=== PATIENT | male | born 1935 | race Caucasian/White ===

== ENCOUNTER 2016-08-23 06:26 | Observation (INO) | payer OTHER ==
[2016-08-23] MEDS ORDERED: BACITRACIN IRRIGATION/NS 50,000 UNITS/1,000 ML BTL IRR ONE (06:35)
[2016-08-23] MEDS ORDERED: diphenhydrAMINE 25 MG CAP PO ONE (06:35)
[2016-08-23] MEDS ORDERED: NS 1,000 ML IV ONE (06:35)
[2016-08-23] MEDS ORDERED: DIAZEPAM 5 MG TAB PO ONE (06:35)
[2016-08-23] MEDS ORDERED: ceFAZolin 2 GM/DEXTROSE 100 ML IV ONE (06:35)
--- NOTE | 2016-08-23 06:52 | CPEKG ---
Heart Rate: 73 RR Interval: 822 P-R Interval: 184 QRSD Interval: 142 QT Interval: 464 QTC Interval: 512 P [place]: 53 QRS [place]: 20 T Wave [place]: 21 EKG Severity - ABNORMAL ECG - EKG Impression: SINUS RHYTHM EKG Impression: MULTIPLE ATRIAL PREMATURE COMPLEXES EKG Impression: RIGHT BUNDLE BRANCH BLOCK Electronically Signed By: Irvin Perez 23-Aug-2016 09:52:11
[2016-08-23] MEDS ORDERED: LIDOCAINE 1% 300 MG/30 ML SDV ONE (07:22)
[2016-08-23 07:23] LABS: % IMMATURE GRANULYOCYTES 0.8 % (0.0-1.1); ABSOLUTE IMMATURE GRANULOCYTES 0.04 10^3/uL (0.00-0.10); ADD DIFF? NO; ADD MORPH? NO; ADD SCAN? NO; ATYPICAL LYMPHOCYTE FLAG 0 (0-99); FRAGMENT RBC FLAG 0 (0-99); HEMATOCRIT 43.5 % (40.0-51.0); HEMOGLOBIN 15.8 g/dL (13.7-17.5); LEFT SHIFT FLG 0 (0-99); LIPEMIA HEMOLYSIS FLAG 90 (0-99); MEAN CELL HEMOGLOBIN 36.2 pg (27.9-34.1); MEAN CELL HEMOGLOBIN CONCENTR. 36.3 g/dL (32.4-36.7); MEAN CELL VOLUME 99.5 fL (81.5-99.8); PLATELET CLUMPS FLAG 10 (0-99); RED BLOOD CELL COUNT 4.37 10^6/uL (4.40-6.38)
[2016-08-23] MEDS ORDERED: fentaNYL 100 MCG/2 ML INJ ONE (07:23)
[2016-08-23] MEDS ORDERED: MIDAZOLAM 2 MG/2 ML VIAL ONE ×3 (07:23→08:27)
[2016-08-23] MEDS ORDERED: LIDO/EPI 1% **for epidural** 30 ML SDV ONE (07:24)
[2016-08-23] MEDS ORDERED: IOPAMIDOL (ISOVUE-370) 150 ML BTL IV ONE (07:24)
[2016-08-23] MEDS ORDERED: BUPIVACAINE 0.5% 30 ML SDV ONE (07:24)
[2016-08-23 07:29] LABS: ANION GAP 13 mEq/L (8-16); CALCIUM 9.6 mg/dL (8.5-10.4); CARBON DIOXIDE 22 mEq/l (22-31); CHLORIDE 103 mEq/L (97-110); CREATININE 0.9 mg/dL (0.7-1.3); GLOMERULAR FILTRATION RATE > 60; GLUCOSE 100 mg/dL (70-100); PLATELET COUNT 46 10^3/uL (150-400); POTASSIUM 4.5 mEq/L (3.5-5.2); SODIUM 138 mEq/L (134-144)
[2016-08-23 07:33] LABS: INR 1.53 (0.83-1.16); PROTIME(PATIENT) 18.4 SEC (12.0-15.0)
[2016-08-23 08:09] LABS: PLATELET ESTIMATE DECREASED (ADEQ)
[2016-08-23] MEDS ORDERED: ONDANSETRON DISINTEGRATING 4 MG TAB PO PRN (09:33)
[2016-08-23] MEDS ORDERED: ONDANSETRON 4 MG/2 ML VIAL IVP PRN (09:33)
--- NOTE | 2016-08-23 09:50 | CPEKG ---
Heart Rate: 65 RR Interval: 923 P-R Interval: 192 QRSD Interval: 148 QT Interval: 480 QTC Interval: 500 P [place]: 39 QRS [place]: 5 T Wave [place]: 14 EKG Severity - ABNORMAL ECG - EKG Impression: PACEMAKER SPIKES OR ARTIFACTS EKG Impression: SINUS RHYTHM EKG Impression: RIGHT BUNDLE BRANCH BLOCK EKG Impression: ATRIAL PACING APPEARS NEW IN COMPARISON TO PRIOR (23-AUG-16) Electronically Signed By: Irvin Perez 23-Aug-2016 10:00:22
--- NOTE | 2016-08-23 10:00 | EPPROC ---
Electrophysiology Procedure Note: PROCEDURE PERFORMED: 1. Implantation of an A/V Pacemaker 2. Subclavian vein angiography 3. Fluoroscopy INDICATION: Type 2 second-degree heart block during exercise treadmill testing. Paroxysmal complete heart block with symptoms of dizziness. PROCEDURE NOTE: Patient presented to the cardiac catheterization laboratory in a fasting, post absorptive state . Cardiac catheterization laboratory nurse administered sedation. The left infraclavicular area was prepped and draped in the usual sterile fashion. Lidocaine plus bupivacaine was used for local anesthesia. Left subclavian venography was performed by injection of iodinated contrast into the left antecubital vein. This was done to assure patency of the vein and also to assess for any anatomical aberrations. Using a combination of blunt and sharp dissection and electrocautery, the dissection was carried down to the prepectoral fascia. A pocket was made in this anatomical plane. All bleeding was controlled with electrocautery. The pocket was packed with gauze soaked in antibiotic solution. Fluoroscopy was utilized during the entire procedure for venous access and placement of the leads. Using a direct stick technique the left extrathoracic axillary vein was accessed with 2 sticks using the modified Seldinger technique. Placement of the guidewires into the venous system was confirmed by low-pressure blood return and also by visualizing the guidewires advancing into the inferior vena cava. A purse string suture was applied around the guidewires. Two #7 Singaporean sheaths were advanced under fluoroscopic guidance over the guidewire. An active fixation ventricular lead was advanced into the right ventricular apex and screwed in place. An active fixation atrial lead was advanced into the right atrial appendage and screwed in place. The peel away sheaths were removed. Pacing thresholds, sensing parameters and lead impedances were measured. There was no diaphragmatic stimulation at maximum output. The leads were sutured to the prepectoral fascia with 3 nonabsorbable sutures each. The pocket was again inspected for any bleeding. The leads were attached to the pacemaker securely. The pacemaker was inserted into the pocket and secured in place with a nonabsorbable suture. Fluoroscopy was performed in ADKINS and SPANISH planes to verify right-sided placement of the leads. Also fluoroscopy of the pacemaker pocket was performed. The pacemaker pocket was closed in 3 layers with absorbable monocryl sutures and emma. Appropriate dressing was applied. The patient left the cardiac catheterization laboratory in stable condition. Serial Numbers: 1. Device: [facility] [id number] 2. Atrial Lead: SJM [id number] 3. Ventricular Lead: [id number] [id number] Stimulation Thresholds & Impedance Measurements: 1. Atrial Lead P 2.9 mV 0.9 V 0.5 ms 553 ohm 2. Ventricular Lead R 6.2 mV 0.4 V 0.5 ms 833 ohm Nathan Pacing Parameters 1. Pacing mode: DDD 2. Lower rate: 60 ppm 3. Upper tracking rate: 130 ppm 4. Upper sensor rate: 130 ppm Patient Problems: Problems Problem Status Onset Heart block AV third degree Acute Coronary artery disease Acute Chest pain Acute Abnormal adenosine sestamibi study Acute
[2016-08-23] MEDS: ACETAMINOPHEN 325 MG TAB PO PRN ×2 (15:22→20:40)
[2016-08-23] MEDS: DORZOLAMIDE 2% OPTH DROPS OP SCH ×2 (17:05→21:00)
[2016-08-23] MEDS ORDERED: ZOLPIDEM TARTRATE 5 MG TAB PO PRN (17:23)
[2016-08-23] MEDS ORDERED: ATORVASTATIN CALCIUM 10 MG TAB PO SCH (21:00)
[2016-08-23] MEDS ORDERED: NEBIVOLOL HCL 5 MG TAB PO SCH (21:00)
[2016-08-24 04:42] VITALS: RESP 18; O2SAT 97
[2016-08-24 04:43] LABS: % IMMATURE GRANULYOCYTES 0.4 % (0.0-1.1); ABSOLUTE IMMATURE GRANULOCYTES 0.02 10^3/uL (0.00-0.10); ADD DIFF? NO; ADD MORPH? NO; ADD SCAN? NO; ATYPICAL LYMPHOCYTE FLAG 20 (0-99); FRAGMENT RBC FLAG 0 (0-99); HEMOGLOBIN 13.9 g/dL (13.7-17.5); LEFT SHIFT FLG 0 (0-99); LIPEMIA HEMOLYSIS FLAG 90 (0-99); MEAN CELL HEMOGLOBIN 35.9 pg (27.9-34.1); MEAN CELL HEMOGLOBIN CONCENTR. 35.6 g/dL (32.4-36.7); MEAN CELL VOLUME 100.8 fL (81.5-99.8); MEAN PLATELET VOLUME 11.4 fL (8.7-11.7); PLATELET CLUMPS FLAG 10 (0-99); RED BLOOD CELL COUNT 3.87 10^6/uL (4.40-6.38); RED CELL DISTRIBUTION WIDTH 14.1 % (11.5-15.2)
[2016-08-24 04:44] LABS: PLATELET COUNT 35 10^3/uL (150-400)
[2016-08-24 04:52] LABS: ANION GAP 9 mEq/L (8-16); CALCIUM 9.2 mg/dL (8.5-10.4); CARBON DIOXIDE 22 mEq/l (22-31); CHLORIDE 105 mEq/L (97-110); CREATININE 0.8 mg/dL (0.7-1.3); GLOMERULAR FILTRATION RATE > 60; GLUCOSE 101 mg/dL (70-100); POTASSIUM 3.9 mEq/L (3.5-5.2); SODIUM 136 mEq/L (134-144)
[2016-08-24 05:25] LABS: PLATELET ESTIMATE DECREASED (ADEQ)
[2016-08-24] MEDS: ACETAMINOPHEN 325 MG TAB PO PRN (06:27)
[2016-08-24] MEDS ORDERED: BIMATOPROST 0.01% 2.5 ML OPHT.BTL EACHEYE SCH (09:00)
--- NOTE | 2016-08-24 09:01 | CPEKG ---
Heart Rate: 69 RR Interval: 870 P-R Interval: 176 QRSD Interval: 138 QT Interval: 460 QTC Interval: 493 P [place]: 24 QRS [place]: 18 T Wave [place]: 21 EKG Severity - ABNORMAL ECG - EKG Impression: SINUS RHYTHM EKG Impression: MULTIPLE ATRIAL PREMATURE COMPLEXES EKG Impression: RIGHT BUNDLE BRANCH BLOCK EKG Impression: INTERMITTENT ATRIAL PACING Electronically Signed By: Irvin Perez 24-Aug-2016 11:50:05
[2016-08-24 09:18] VITALS: BP 133/85; PULSE 73; TEMP 97.7
[2016-08-24] MEDS: DORZOLAMIDE 2% OPTH DROPS OP SCH (09:38)
--- NOTE | 2016-08-24 21:34 | GDS ---
[f rep st] DISCHARGE SUMMARY DISCHARGE DIAGNOSES: 1. High-degree atrioventricular block with symptoms of dizziness. 2. Status post dual-chamber pacemaker implant. BRIEF HISTORY: This is an 81-year-old man who was referred by Dr. Gabriel to Dr. Byers for pacemaker implant. He had been experiencing dizziness and secondary heart block was noted on a stress test. He then wore a Zio patch which demonstrated intermittent complete heart block with dizziness. HOSPITAL COURSE: Dr. Byers implanted an Ramsay dual-chamber pacemaker (program mode is DDD at 60 beats per minute) on 08/24/2016. Interrogation demonstrated P waves at 3 mV, impedance at 530 ohms, capture threshold 0.25 V at 0.5 milliseconds. RV capture threshold is 0.5 V at 0.5 milliseconds. R-waves are measured at 9 mV and impedance is 750 ohms. On 08/23/2016, the patient went into PMT at a rate of 130 beats per minute. Reny Harrington RN from [facility] adjusted PVARP after testing retrograde conduction, which was noted to be at 227 milliseconds. PVARP is at 400 milliseconds and shortest at 250 milliseconds. The patient did well overnight without bleeding at the site or significant pain. No further PMT was noted on telemetry. TESTING DONE: Chest x-ray demonstrates excellent lead positioning and no pneumothorax. LABS: WBC is 4.53, hemoglobin 13.9, hematocrit 39, platelets are 35. (These have been chronically low and is not a new finding and are followed by hematology ) MCV is 100.8. Sodium 136, potassium 3.9, chloride 105, bicarb 22 , BUN 15, creatinine 0.8, glucose 101. PT 18.4, INR is 1.53. PHYSICAL EXAM: VITAL SIGNS: Blood pressure is 144/87, pulse is 70, respirations 18, temperature is 36.6, O2 saturation on room air is 97%. GENERAL : He is alert and oriented. Sitting up in a chair in no acute distress. CARDIAC: Regular rate and rhythm with a 2/6 systolic murmur at the left sternal border. LUNGS: Clear to auscultation. CHEST: Pacemaker site is dry and intact with Opsite over gauze and no dried blood on dressing. There is a mild amount of pocket swelling. No significant ecchymosis. EXTREMITIES: Warm. No discoloration. DISCHARGE INSTRUCTIONS: Post pacemaker implant activity restrictions were verbally reviewed with patient and he was given written instructions as well, including not bring his left arm above the shoulder or behind himself. FOLLOWUP: 1. He has a pacemaker check scheduled August 30 at 9 o'clock at [facility]. 2. He has a followup appointment with Dr. Byers on September 27 at 9:15 at [facility]. /[id number]/MODL MTDD
== END 2016-08-24 12:25 | disposition home or self-care (01) ==
LOC: FCATH 06:26 → F2W 09:33
PROVIDERS: ADMIT Internal Medicine Cardiovascular Disease; ATTEND Internal Medicine Cardiovascular Disease
PROC: B5171ZA Fluoroscopy of Left Subclavian Vein using Low Osmolar Contrast, Guidance (ICD-10-PCS; principal; 2016-08-23)
PROC: 0JH606Z Insertion of Pacemaker, Dual Chamber into Chest Subcutaneous Tissue and Fascia, Open Approach (ICD-10-PCS; principal; 2016-08-23)
PROC: 02H63JZ Insertion of Pacemaker Lead into Right Atrium, Percutaneous Approach (ICD-10-PCS; principal; 2016-08-23)
PROC: 02HK3JZ Insertion of Pacemaker Lead into Right Ventricle, Percutaneous Approach (ICD-10-PCS; principal; 2016-08-23)
DX: I44.2 Atrioventricular block, complete (principal); D69.6 Thrombocytopenia, unspecified
CPT/HCPCS: 33208; 71010; 71020; 93005; C1785; C1898; J0690; J2250; J3010; Q9967

== ENCOUNTER 2016-09-18 10:41 | Observation (INO) | payer OTHER ==
[2016-09-18] MEDS ORDERED: NS 250 ML IV ONE (10:50)
[2016-09-18] MEDS ORDERED: ASPIRIN 81 MG CHEWABLE TAB PO ONE (10:50)
--- NOTE | 2016-09-18 10:54 | CPEKG ---
Heart Rate: 67 RR Interval: 896 P-R Interval: 176 QRSD Interval: 138 QT Interval: 444 QTC Interval: 469 P [place]: 35 QRS [place]: -1 T Wave [place]: -18 EKG Severity - ABNORMAL ECG - EKG Impression: ATRIAL-PACED COMPLEXES EKG Impression: RIGHT BUNDLE BRANCH BLOCK Electronically Signed By: Michelle Ball 18-Sep-2016 15:15:18
[2016-09-18 11:21] LABS: ANION GAP 14 mEq/L (8-16); CALCIUM 9.4 mg/dL (8.5-10.4); CARBON DIOXIDE 19 mEq/l (22-31); CHLORIDE 107 mEq/L (97-110); CREATININE 0.8 mg/dL (0.7-1.3); GLOMERULAR FILTRATION RATE > 60; GLUCOSE 99 mg/dL (70-100); SODIUM 140 mEq/L (134-144)
[2016-09-18 11:22] LABS: APTT 31.7 SEC (23.0-38.0)
[2016-09-18 11:28] LABS: INR 1.39 (0.83-1.16)
[2016-09-18 11:31] LABS: % IMMATURE GRANULYOCYTES 0.3 % (0.0-1.1); ABSOLUTE IMMATURE GRANULOCYTES 0.02 10^3/uL (0.00-0.10); ADD DIFF? NO; ADD MORPH? NO; ADD SCAN? NO; ATYPICAL LYMPHOCYTE FLAG 10 (0-99); FRAGMENT RBC FLAG 0 (0-99); HEMATOCRIT 40.5 % (40.0-51.0); HEMOGLOBIN 14.5 g/dL (13.7-17.5); LEFT SHIFT FLG 0 (0-99); LIPEMIA HEMOLYSIS FLAG 90 (0-99); MEAN CELL HEMOGLOBIN 36.1 pg (27.9-34.1); MEAN CELL HEMOGLOBIN CONCENTR. 35.8 g/dL (32.4-36.7); MEAN CELL VOLUME 100.7 fL (81.5-99.8); MEAN PLATELET VOLUME 12.5 fL (8.7-11.7); PLATELET CLUMPS FLAG 10 (0-99); PLATELET COUNT 46 10^3/uL (150-400); RED BLOOD CELL COUNT 4.02 10^6/uL (4.40-6.38); RED CELL DISTRIBUTION WIDTH 14.6 % (11.5-15.2)
[2016-09-18 11:33] LABS: TROPONIN I 0.018 ng/mL (0-0.034)
[2016-09-18 11:35] LABS: CREATINE KINASE-MB FRACTION 3.27 ng/mL (0-3.19)
[2016-09-18 11:38] LABS: CK-MB INTERPRETATION NEGATIVE (NEGATIVE)
--- NOTE | 2016-09-18 11:54 | EDPHY ---
H & P Time Seen by Provider: 09/18/16 10:50 HPI/ROS: HPI Chest pain, upper abdominal discomfort. 81-year-old male by private vehicle. This patient has an extensive cardiac disease history. He had a pacemaker placed in July by Dr. Byers. Dr. Murtaza Gabriel is his corporate counselor. He just returned from [place] on overnight flight last night. He reports that while in [place] he had intermittent left-sided chest discomfort described as a deep dull ache. He reports that this persisted and was slightly worse this morning. No associated shortness of breath. He reports also feeling some nausea and having some upper abdominal discomfort described as a low level aching cramping sensation in the epigastric area. ROS: Constitutional: No fever, no chills. No weakness. Eyes: No discharge. No changes in vision. ENT: No sore throat. No nasal congestion or rhinorrhea. Respiratory: No cough. No shortness of breath. Cardiac: As above, no palpitations. Gastrointestinal: As above, no vomiting, no diarrhea. Genitourinary: No hematuria. No dysuria or increased frequency with urination. Musculoskeletal: No back pain. No neck pain. No myalgias or arthralgias. Skin: No rashes. Neurological: No headache. No focal weakness or altered sensation. Past medical history: Heart block with recent pacemaker placement, prostate surgery with prostatectomy, knee replacements, back surgery, shoulder surgery, thrombocytopenia, hyperlipidemia. He sees Dr. Balderas for his thrombocytopenia. Social history: He is . Nonsmoker. He is currently here by himself. No alcohol. Physical Exam: General Appearance: Alert, no distress. This patient is responding to questions appropriately and in full sentences. This patient appears well- hydrated and well-nourished. Eyes: Pupils equal and round no pallor or injection. No lid edema, erythema or injection. Respiratory: There are no retractions, lungs are clear to auscultation with good air movement bilaterally. Cardiovascular: Irregular, irregular rhythm. Intense holosystolic murmur. Gastrointestinal: Abdomen is soft and nontender, no masses, bowel sounds normal. No focal tenderness at McBurney's point. No Rainey sign. Neurological: Motor sensory function is grossly intact. Cranial nerves are normal. Gait is normal. Skin: Warm and dry, no rashes. Musculoskeletal: Neck is supple and nontender. Extremities are symmetrical. No significant lower extremity edema. All joints range without pain or impingement. Psychiatric: No agitation. No depression. Database: EKG: EKG time is 10:52 a.m., EKG shows atrial paced complexes with a right bundle branch block, irregular, ventricular rate average 67. No ST, T-wave changes indicative of acute ischemic or injury pattern. Imaging: Chest x-ray AP portable; the cardiac mediastinal silhouette is unremarkable. No evidence of infiltrate or pneumothorax. No acute cardiopulmonary disease process noted. Left upper chest wall pacemaker. Leads appear intact. Interpreted by me. Procedures: Emergency department course: IV placed. He was placed on nasal cannula oxygen. Vital signs reviewed. EKG obtained and reviewed by myself immediately. 11:50 a.m., patient re-evaluated. Resting comfortably at this time. Results of his initial diagnostic test, EKG and chest x-ray discussed with him. Need for admission discussed. He consents. 12:10 p.m., discussed case with hospitalist. Patient accepted for admission by Dr. Panchito Ratliff. D-dimer, lipase and liver function studies pending at this time. 12:45 p.m., Dr. Ratliff is at the patient's bedside. CT angiogram of the chest to evaluate for pulmonary embolism will be ordered and followed up on by Dr. Ratliff. Echocardiogram has been performed in the emergency department. Study waiting interpretation by Cardiology. Patient has remained stable throughout his emergency department course. He was admitted to telemetry in stable condition. Differential Diagnosis: The differential diagnosis on this patient includes but is not limited to acute coronary syndrome, arrhythmia, heart failure, pericarditis, pericardial effusion. This represents a partial list of diagnoses considered. These considerations are based on history, physical exam, past history, reassessment and diagnostic testing. Smoking Status: Never smoked Constitutional: Initial Vital Signs Temperature (C) 36.5 C 09/18/16 10:44 Heart Rate 80 09/18/16 10:44 Respiratory Rate 16 09/18/16 10:44 Blood Pressure 154/82 H 09/18/16 10:44 O2 Sat (%) 96 09/18/16 10:44 O2 Delivery Mode Room Air Allergies/Adverse Reactions: oxycodone [Oxycodone] Allergy (Severe, Verified 01/04/12 11:00) MAKES ME CRAZY Home Medications: Medication Instructions Recorded Atorvastatin Calcium [Lipitor 10 10 mg PO HS #0 01/17/14 mg (*)] Bimatoprost 0.01% [Lumigan 0.01% 1 drops EACHEYE HS #0 01/17/14 (*)] Nebivolol HCl [Bystolic] 20 mg PO HS #0 01/17/14 Dorzolamide 2% [Trusopt 2% (*)] 1 drops EACHEYE TID 08/23/16 Acetaminophen [Tylenol 325mg (*)] 650 mg PO Q4HRS PRN #0 tab 08/24/16 AMLODIPINE BESYLATE/BENAZEPRIL 1 each PO HS 09/18/16 [Lotrel 10-20 mg] Medical Decision Making - Data Points Laboratory Results: Laboratory Results 09/18/16 11:00 09/18/16 11:00 Medications Given: Discontinued Medications Aspirin (Aspirin) 324 mg PO EDNOW ONE Stop: 09/18/16 10:51 Last Admin: 09/18/16 10:57 Dose: 324 mg Sodium Chloride (Ns) 250 mls @ 0 mls/hr IV ONCE ONE; Wide Open PRN Reason: Protocol Stop: 09/18/16 10:51 Last Admin: 09/18/16 10:58 Dose: 250 mls Magnesium Sulfate (Magnesium Sulf 2 Gm (Premix)) 50 mls @ 50 mls/hr IV ONCE ONE Stop: 09/18/16 20:37 Last Admin: 09/18/16 20:10 Dose: 50 mls Magnesium Sulfate/Dextrose (Magnesium Sulf 1 Gm (Premix)) 100 mls @ 100 mls/hr IV ONCE ONE Stop: 09/19/16 10:31 Last Admin: 09/19/16 10:27 Dose: 100 mls Departure - Departure Disposition: [facility] Inpatient Acute Clinical Impression: Chest pain, Pacemaker
[2016-09-18 12:07] LABS: PLATELET ESTIMATE DECREASED (ADEQ)
[2016-09-18] MEDS ORDERED: ONDANSETRON DISINTEGRATING 4 MG TAB PO PRN (12:19)
[2016-09-18] MEDS ORDERED: oxyCODONE IR 5 MG TAB PO PRN (12:19)
[2016-09-18] MEDS ORDERED: ONDANSETRON 4 MG/2 ML VIAL IVP PRN (12:19)
--- NOTE | 2016-09-18 13:23 | GHP ---
[f rep st] HISTORY AND PHYSICAL DATE OF ADMISSION: 09/18/2016 CHIEF COMPLAINT: Chest pain and abdominal pain. HISTORY OF PRESENT ILLNESS: This is an 81-year-old man with a history of heart disease, who present s with chest pain. He was in [place] last week. This started while he was there. It is described a s intermittent, lasts about an hour, left-sided, dull. He also complains of some upper abdominal pa in which he feels is related. This is possibly exertional though that is not totally clear. He has not had any nausea, vomiting, or diarrhea. He had a pacemaker placed about [address] Byers for heart block. This was relatively unremar kable. He had a cardiac catheterization in [address] Ching. This showed an occluded diagonal with sig nificant collaterals. No intervention was taken. There were good collaterals. He has a history of thrombocytopenia which was thought to be consumptive in the setting of hepatosplenomegaly. This we ighed into part of the decision not to subject him to dual anti-platelet therapy. PAST MEDICAL/SURGICAL HISTORY: 1. Coronary artery disease, as above. 2. Pacemaker for complete heart block, placed about 1 month ago. 3. Thrombocytopenia. 4. Hepatosplenomegaly. 5. Hypertension. 6. Hyperlipidemia. 7. Prostatectomy. 8. TKA, right-sided. 9. Back surgery. 10. Shoulder surgery. MEDICATIONS: Please see medication reconciliation. ALLERGIES: Oxycodone. FAMILY HISTORY: Brother and father both had heart disease. SOCIAL HISTORY: Owns [employer]. He drinks alcohol occasionally. REVIEW OF SYSTEMS: A 10-point review of systems is conducted and is negative except per HPI. PHYSICAL EXAM: VITAL SIGNS: Blood pressure 134/76, heart rate 66, respiration 16 saturating 95% on room air. Temperature is 37.2. GENERAL: The patient is a very pleasant man who is resting comfor tably, in no acute distress. HEENT: Shows him to be normocephalic, atraumatic. CARDIOVASCULAR: E xam shows him to be irregularly irregular. He has a prominent 2/6 systolic murmur. He has a pacema ker in place which is healing well. ABDOMEN: Shows him to be tender to palpation in bilateral uppe r abdomen. There is no guarding or rebound tenderness. SKIN: Shows no rash. : No Riggins. NEUR OLOGIC: Shows him to be alert and oriented x3. He is moving all extremities. PSYCHIATRIC: Exam s hows normal mood and affect. LABS: Platelets 46, hemoglobin 14, MCV is 100.7. INR is 1.39, bicarb is 19. DATA: 1. I reviewed his chart. 2. I personally viewed and interpreted his EKG. This shows an atrial paced rhythm. He has a right bundle branch block. He also had 1 V-paced complex. 3. Chest x-ray, which I personally reviewed and interpreted, shows pacemaker in place. There is no thing acute. IMPRESSION AND PLAN: An 81-year-old man with complex cardiac history, presents with chest pain, upp er abdominal pain. 1. Chest pain: Does not sound very anginal, however, still concerning given his history. We will trend troponins, recheck an EKG in the morning, we will consult Cardiology as well. 2. Abdominal pain, this is bilateral upper abdomen: LFTs are pending. He has known hepatosplenome asia. Will consider imaging though will defer for right now as he has a soft abdomen overall. 3. Reported LVOT gradient of 80: This is per echo technicians. Pending Cardiology read. Do appre ciate cardiology input. 4. Ectopy: Having significant ectopy. It is difficult to interpret on telemetry. It may just be A-paced and some V-paced complexes. Will interrogate his pacemaker. 5. Thrombocytopenia: This seems to be consumptive in the setting of hepatosplenomegaly. He is not receiving any directed treatment at this point. Platelets are 46. This does complicate potentiall y using antiplatelets and anticoagulation in him. 6. Recent travel: D-dimer is pending. 7. Hypertension: Will continue his medications. 8. Hyperlipidemia: Statin. 9. Code status: Full. 10. Venous thromboembolism risk: He is moderate though he is high risk for anticoagulating, will p lace him on SCDs for now. /[id number]/MODL
[2016-09-18 15:26] LABS: ALBUMIN 4.2 g/dL (3.5-5.0); BILIRUBIN,TOTAL 2.9 mg/dL (0.1-1.4); BILIRUBIN-CONJUGATED 1.1 mg/dL (0.0-0.5); BILIRUBIN-UNCONJUGATED 1.8 mg/dL (0.0-1.1); TOTAL PROTEIN 7.9 g/dL (6.3-8.2)
[2016-09-18] MEDS ORDERED: BEER 1 EACH EA PO SCH (18:00)
[2016-09-18] MEDS ORDERED: IOPAMIDOL (ISOVUE 370) 100 ML BTL IV ONE (18:16)
[2016-09-18] MEDS ORDERED: PROTOCOL MAGNESIUM 1 DOSE IV PRN (19:38)
[2016-09-18] MEDS ORDERED: MAGNESIUM SULF 2 GM/WATER 50 ML IV ONE (19:38)
[2016-09-18] MEDS: DORZOLAMIDE 2% OPTH DROPS EACHEYE SCH ×2 (20:18→21:13)
[2016-09-18] MEDS ORDERED: ZOLPIDEM TARTRATE 5 MG TAB PO PRN (20:42)
[2016-09-18] MEDS ORDERED: BIMATOPROST 0.01% 2.5 ML OPHT.BTL EACHEYE SCH (21:00)
[2016-09-18] MEDS ORDERED: NEBIVOLOL HCL 5 MG TAB PO SCH (21:00)
[2016-09-18] MEDS ORDERED: NON-FORMULARY NEW DRUG (Nebivolol Hcl [Bystolic] 20 MG) PO SCH (21:00)
[2016-09-18] MEDS ORDERED: NON-FORMULARY NEW DRUG (Amlodipine Besylate/Benazepril [Lotrel 10-20 Mg] 1 EACH) PO SCH (21:00)
[2016-09-18] MEDS ORDERED: AMLODIPINE BESYLATE 5/BENAZEPRIL 10MG 1 EACH CAP PO SCH (21:00)
[2016-09-18] MEDS ORDERED: ATORVASTATIN CALCIUM 10 MG TAB PO SCH (21:00)
[2016-09-19] MEDS: ACETAMINOPHEN 325 MG TAB PO PRN ×2 (04:05→08:09)
[2016-09-19 04:33] LABS: % IMMATURE GRANULYOCYTES 0.5 % (0.0-1.1); ABSOLUTE IMMATURE GRANULOCYTES 0.02 10^3/uL (0.00-0.10); ADD DIFF? NO; ADD MORPH? NO; ADD SCAN? NO; ATYPICAL LYMPHOCYTE FLAG 0 (0-99); FRAGMENT RBC FLAG 0 (0-99); HEMATOCRIT 37.7 % (40.0-51.0); HEMOGLOBIN 13.3 g/dL (13.7-17.5); LEFT SHIFT FLG 0 (0-99); LIPEMIA HEMOLYSIS FLAG 90 (0-99); MEAN CELL HEMOGLOBIN CONCENTR. 35.3 g/dL (32.4-36.7); MEAN CELL VOLUME 102.2 fL (81.5-99.8); MEAN PLATELET VOLUME 11.4 fL (8.7-11.7); PLATELET CLUMPS FLAG 0 (0-99); RED BLOOD CELL COUNT 3.69 10^6/uL (4.40-6.38); RED CELL DISTRIBUTION WIDTH 14.6 % (11.5-15.2)
[2016-09-19 04:41] LABS: ALANINE AMINOTRANSFERASE 56 IU/L (21-72); ALBUMIN 3.6 g/dL (3.5-5.0); ALKALINE PHOSPHATASE 93 IU/L (38-126); ANION GAP 13 mEq/L (8-16); ASPARTATE AMINOTRANSFERASE 46 IU/L (17-59); BILIRUBIN,TOTAL 2.1 mg/dL (0.1-1.4); CALCIUM 8.8 mg/dL (8.5-10.4); CARBON DIOXIDE 21 mEq/l (22-31); CHLORIDE 108 mEq/L (97-110); CREATININE 0.8 mg/dL (0.7-1.3); GLOMERULAR FILTRATION RATE > 60; GLUCOSE 93 mg/dL (70-100); MAGNESIUM 1.7 mg/dL (1.6-2.3); POTASSIUM 3.7 mEq/L (3.5-5.2); SODIUM 142 mEq/L (134-144); TOTAL PROTEIN 6.7 g/dL (6.3-8.2)
[2016-09-19 05:05] LABS: PLATELET COUNT 31 10^3/uL (150-400)
[2016-09-19 05:13] LABS: BILIRUBIN-CONJUGATED 0.7 mg/dL (0.0-0.5); BILIRUBIN-UNCONJUGATED 1.4 mg/dL (0.0-1.1)
[2016-09-19 05:25] LABS: PLATELET ESTIMATE DECREASED (ADEQ)
[2016-09-19] MEDS: DORZOLAMIDE 2% OPTH DROPS EACHEYE SCH ×2 (08:05→08:19)
--- NOTE | 2016-09-19 08:46 | CPEKG ---
Heart Rate: 76 RR Interval: 789 P-R Interval: 180 QRSD Interval: 144 QT Interval: 472 QTC Interval: 531 P [place]: 14 QRS [place]: 0 T Wave [place]: -28 EKG Severity - ABNORMAL ECG - EKG Impression: SINUS RHYTHM EKG Impression: VENTRICULAR BIGEMINY EKG Impression: RIGHT BUNDLE BRANCH BLOCK Electronically Signed By: Tim Avila 19-Sep-2016 14:41:53
[2016-09-19] MEDS ORDERED: ENOXAPARIN 40 MG/0.4 ML SYR SC SCH (09:00)
--- NOTE | 2016-09-19 09:10 | ECHO ---
[id number] + + [address] : : [place] [address] : : [phone] + Adult Echocardiographic Report + --------+ :Name: BRITTANY DE JESUS PStudy Date: 09/18/2016 12:08 PM : : Hospital Admission Number: [id number] Locati on: ER11: :: 1935 Gender: Male Height: 70 in : :Age: 81 yrs Race: WH Weight: 150 lb : :Reason For Study: Eval LV Fx : : BSA: 1.8 meter s2 : :History: Chest Pain, New Pacemaker : + --------+ MMode/2D Measurements \T\ Calculations IVSd: 1.1 cm LVIDd: 3.8 cm FS: 37.6 % Ao root diam: 3.1 cm LVPWd: 1.1 cm LVIDs: 2.4 cm EDV(Teich): 61.2 ml ACS: 0.90 cm ESV(Teich): 19.3 ml EF(Teich): 68.4 % LVOT diam: 2.1 cm LVOT area: 3.5 cm2 Normal Measurement Values: + + :LVIDd (3.5-5.7cm) IVSd (0.6-1.1cm) LVPWd (0.6-1.1cm) Aortic Root (2.0-3.7cm)Left Atrium (1.5-4.0cm): :LV Vol(d) (76-115ml) LV Vol(s) (29-48ml) Ejec Fraction (50-65%)PV Dwaine (0.6- 1.2m/s) TV Dwaine (0.4-1.0m/s) : :MV E Dwaine (0.8-1.0m/s)MV A Dwaine (0.3-1.0m/s)LVOT Dwaine (0.7-1.2m/s) Asc Ao Dwaine ( 0.9-1.8m/s) : + + Doppler Measurements \T\ Calculations MV E max dwaine: MV V2 max: MV P1/2t max dwaine: Ao V2 max: 143.0 cm/sec 173.5 cm/sec 176.0 cm/sec 329.0 cm/sec MV A max dwaine: MV max PG: MV P1/2t: 110.6 msec Ao max P.0 cm/sec 12.0 mmHg 43.5 mmHg MV E/A: 0.85 MV V2 mean: MVA(P1/2t): 2.0 cm2 Ao mean P.0 cm/sec MV dec slope: 24.7 mmHg MV mean P.0 cm/sec2 Ao V2 mean: 5.0 mmHg 229.3 cm/sec MV V2 VTI: Ao V2 VTI: 60.9 cm 86.3 cm MVA(VTI): VISHAL(I,D): 9.6 cm2 13.6 cm2 VISHAL(V,D): 8.6 cm2 LV V1 max: SV(LVOT): PA V2 max: TR max dwaine: 816.0 cm/sec 831.3 ml 115.0 cm/sec 281.0 cm/sec LV V1 max PG: PA max P.3 mmHg TR max P.3 mmHg 31.6 mmHg LV V1 mean PG: RAP systole: 161.0 mmHg 10.0 mmHg LV V1 mean: RVSP(TR): 586.0 cm/sec 41.6 mmHg LV V1 VTI: 240.0 cm Left Ventricle The left ventricle is normal in size. There is moderate concentric left ventricular hypertrophy. The left ventricular ejection fraction is normal. The left ventricle is hyperdynamic. Ejection Fraction = 68%. No regional wall motion abnormalities noted. Right Ventricle The right ventricle is normal size. There is a pacemaker lead in the right ventricle. Atria The left atrium is severely dilated. The right atrium is mildly dilated. Mitral Valve The mitral valve leaflets appear thickened, but open well. There is moderate to severe mitral annular calcification. There is systolic anterior motion of the mitral valve. There is no evidence of mitral valve prolapse. There is no mitral valve stenosis. The MVA by P1/2t is 2.0 cm2, his previous exam from 02/09 the MVA was 2.8 cm2. There is mild to moderate mitral regurgitation. Tricuspid Valve There is mild tricuspid regurgitation. Right ventricular systolic pressure is 41mmHg. There is Doppler evidence for mild pulmonary hypertension. Aortic Valve Moderate-Severe Aortic Valve Calcification. Severe subvalvular aortic stenosis. There is a LVOT gradient sub aortic valve of 80 mmHg and a velocity of 4.4 m/s. The aortic valve Vmax is 3.2 m/s with a max PG of 41 mmHg and a mean PG of 21 mmHg. The VISHAL area calculations are inaccurate due to severe subaortic stenosis velocities. Moderate valvular aortic stenosis. Pulmonic Valve The pulmonic valve is normal in structure and function. There is no pulmonic valvular regurgitation. Great Vessels Borderline aortic root dilatation. Pericardium/Pleural There is no pericardial effusion. Conclusion A complete two-dimensional transthoracic echocardiogram was performed (2D, M-mode, Doppler and color flow Doppler). There is moderate concentric left ventricular hypertrophy. The left ventricular ejection fraction is normal. The left ventricle is hyperdynamic. Ejection Fraction = 68%. No regional wall motion abnormalities noted. The right ventricle is normal size. There is a pacemaker lead in the right ventricle. The left atrium is severely dilated. The right atrium is mildly dilated. The mitral valve leaflets appear thickened, but open well. There is moderate to severe mitral annular calcification. There is systolic anterior motion of the mitral valve. There is no mitral valve stenosis. The MVA by P1/2t is 2.0 cm2, his previous exam from 02/09 the MVA was 2.8 cm2 There is mild to moderate mitral regurgitation. There is mild tricuspid regurgitation. There is Doppler evidence for mild pulmonary hypertension. Right ventricular systolic pressure is 41mmHg. Moderate to severe aortic valve calcification with reduced leaflet mobility. Severe subvalvular aortic stenosis. There is an LVOT sub-aortic gradient of 80 mmHg and a velocity of 4.4 m/s. The aortic valve Vmax is 3.2 m/s with a max PG of 41 mmHg and a mean PG of 21 mmHg. The aortic valve area calculations are unreliable due to severe subaortic stenosis velocities. Moderate valvular aortic stenosis. The pulmonic valve is normal in structure and function. Borderline aortic root dilatation. There is no pericardial effusion. Final Reading Physician: Bonnie Dempsey signed on 09/19/2016 09:09 AM Ordering Physician: Michelle Ball Performed By: Kendall Berkowitz, CS
[2016-09-19] MEDS ORDERED: MAGNESIUM SULF 1 GM/DEXTROSE 100 ML IV ONE (09:32)
[2016-09-19 12:33] VITALS: BP 132/53; PULSE 72; RESP 15; TEMP 97.7; O2SAT 97
--- NOTE | 2016-09-19 16:21 | PDCARPN ---
Cardiology Progress Note Chief Complaint: 81 year old gentleman well known to my practice with one and half week hx of atypical chest pain that he describes as left lateral chest, lasting 1 second, non radiating and resolving spontaneously. No associated sob. Occurred while at breakfast while in [place] last week. No sob, anglin, pnd, orhtopnea, edema, near syncope, syncope, palpitations, dizziness or lightheadedness. Pacer check demonstrates normal function. No arrhthmias. Echo demonstrates normal LVEF. LVH with LVOT gradient of 80 mmHg and moderate . Findings are not new. Cardiac MRI in Jan 2015 with no evidence of infiltrative process. He did under go pacemaker placement last month due to high degree AV block with symptomatic bradycardia and pauses. Pacer fx is normal. Site well healed. Assessment/Plan: Assessment: 1. Atypical chest pain 2. 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 CAD:known occluded diag with L to L collaterals in Dec 2013. No intervention. 4. Moderate aortic stenosis 5. 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 PVC's 7. MIld ascending aorta dilitation Plan: 1. Increase Bystolic to 20 mg bid 2. stop Amlodipine/benazapirl 3. start Magnesium oxide 400 mg dailiy 09/19/16 16:21 Reviewed/Discussed With: family, hospitalist Time Spent With Patient: 45 minutes Objective: Vital Signs (8 Hrs) Temp Pulse Resp BP Pulse Ox 09/19/16 12:28 36.5 C 72 15 132/53 H 97 Intake/Output (24 Hrs) 09/18/16 09/19/16 09/20/16 05:59 05:59 05:59 Intake Total 1470 Balance 1470 Intake: Oral (ml) 1150 IV Intake (ml) 20 IV Infused (ml) 300 Magnesium Sulf 2 gm/Water 50 50 ml @ 50 mls/hr IV ONCE ONE Rx#:[id number] Other: Weight 65.5 kg Intake Quantity Yes Sufficient Number of Voids Toilet 2 Number of Stools Toilet 1 Result Diagrams: 09/19/16 03:57 09/19/16 03:57 Cardiac Labs: Cardiac Lab Results (72 Hrs) 09/19/16 09/18/16 03:57 17:51 Troponin I 0.020 0.018 - Physical Exam Constitutional: WDWN, healthy appearing, no apparent distress Eyes: PERRL Ears, Nose, Mouth, Throat: moist mucous membranes Cardiovascular: regular rate and rhythm, systolic murmur, pulses symmetric bilat Peripheral Pulses: 2+: carotid (R), carotid (L) Respiratory: clear to auscultate bilat Gastrointestinal: normoactive bowel sounds Skin: no rashes Musculoskeletal: no muscular tenderness Neurologic: AAOx3, CN II-XII grossly intact Psychiatric: cooperative ICD10 Worksheet Patient Problems: Problems Problem Status Onset Chest pain Acute Pacemaker Acute Abnormal adenosine sestamibi study Acute Chest pain Acute Coronary artery disease Acute Heart block AV third degree Acute
--- NOTE | 2016-09-19 19:02 | GDS ---
[f rep st] DISCHARGE SUMMARY ALL DIAGNOSES: 1. Atypical chest pain. 2. Subaortic stenosis with left ventricular outflow tract gradient of 80 mmHg. 3. Coronary artery disease with collaterals. 4. Moderate aortic stenosis. 5. Pacer placed due to high-grade atrioventricular block in July of 2016. 6. Premature ventricular contractions. 7. Thrombocytopenia. 8. Hepatosplenomegaly. 9. Hyperlipidemia. HOSPITAL COURSE: This is an 81-year-old man admitted with atypical chest pain. Echocardiogram reve aled a significant LVOT gradient of 80 mmHg due to primarily de subaortic stenosis. He does, additi onally, have some moderate aortic stenosis. He did have some ectopy. He had a recent pacemaker anna deshaun here for high-grade AV block. Seen by Dr. Gabriel, his primary pneumatic tool operator. We will make medicat ion changes, including increasing his Bystolic to 20 mg b.i.d., stopping amlodipine and benazepril, starting magnesium oxide 400 mg daily for hypomagnesemia. He will follow up soon with Dr. Gabriel. In terms of thrombocytopenia, this is thought to be consumptive in the setting of his hepatosplenome asia. Unclear exactly the etiology of his hepatosplenomegaly, though he does admit to drinking a si gnificant amount of wine. /[id number]/MODL
[2016-09-20] MEDS ORDERED: MAGNESIUM OXIDE 400 MG TAB PO SCH (09:00)
--- NOTE | 2016-09-20 10:55 | GCON ---
[f rep st] CONSULTATION CARDIOLOGY CONSULTATION. DATE OF CONSULTATION: 09/19/2016 INDICATION FOR CONSULTATION: Atypical chest pain. HISTORY OF PRESENT ILLNESS: The patient is a pleasant 81-year-old gentleman well known to my cardiology practice with a history of moderate aortic stenosis , as well as hypertrophic cardiomyopathy with evidence of subvalvular gradient in the LVOT of approximately 80 mmHg, coronary artery disease, mildly dilated ascending aorta measuring 3.9 cm on echocardiogram in 2015, coupled with a history of high-degree AV block with symptomatic bradycardia and pauses noted on Zio patch monitor in July 2016, and subsequent dual-chamber pacemaker implantation with Dr. Byers in July 2016. The [facility] with complaints of atypical left-sided chest discomfort. He just returned from a week in [place] on the [place] where he was vacationing with his . He states that for the last week and a half he has had these episodes of atypical left-sided chest discomfort, which he describes as lasting 1 second and resolving spontaneously. He describes the discomfort as dull, 4/10, and not associated with symptoms of shortness of breath, dyspnea, or diaphoresis. He also describes intermittent left upper quadrant abdominal discomfort and some mild nausea. Secondary to the fact that he has continued to have these symptoms, he presented to [facility] for further evaluation. His workup has demonstrated normal troponins x3 at 0.018 x2 and 0.020 on his most recent value. The most recent EKG demonstrates normal sinus rhythm with ventricular bigeminy and underlying right bundle branch block with intermittent AV-paced beats. He also underwent complete 2D echocardiogram during this hospitalization demonstrating normal left ventricular function with LVOT gradient of 80 mmHg, which is similar to previous echo obtained in our office in January 2015. He has undergone cardiac MRI demonstrating no evidence of infiltrative process to the myocardium. Upon his admission to [facility], he was found to be hypomagnesemic with a magnesium of 1.4. His potassium level was within normal limits. He received a total of 3 g of IV magnesium, and his most recent value is 1.7. He states that after magnesium infusion his left-sided chest discomfort has resolved completely. He has a known history of thrombocytopenia that is followed by Dr. Balderas. His platelet count on admission was 46. His most recent platelet count this morning was 31. Currently, at the time of my exam, he is resting comfortably without cardiac complaint. He did undergo pacemaker interrogation yesterday demonstrating normal device function and no evidence of sustained arrhythmias. He is having frequent PVCs. There is no evidence of sustained arrhythmias on his pacemaker interrogation. He is currently on Bystolic 20 mg daily. PAST MEDICAL HISTORY: 1. Coronary artery disease with diagnostic left heart catheterization December 2013 with occluded diagonal branch with [id number] collaterals and 30% luminal irregularities throughout the right coronary artery. Of note, he is not on aspirin therapy in the setting of thrombocytopenia. 2. Hypertrophic cardiomyopathy with LVOT gradient of 80 mmHg on most recent echocardiogram. 3. Moderate aortic stenosis, which is unchanged on echocardiogram performed yesterday. 4. History of thrombocytopenia. SOCIAL HISTORY: He is . He lives with his . 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 He does not smoke. He drinks approximately 3 glasses of wine per day. FAMILY HISTORY: Noncontributory. PHYSICAL EXAMINATION: VITAL SIGNS: Blood pressure is currently 132/53, heart rate of 72, oxygen saturation 97% on room air, temperature 36.5. GENERAL: He is awake, alert, oriented, appropriate, in no apparent distress. NECK: There is no evidence of JVP or carotid bruits. LUNGS: Clear to auscultation bilaterally. CARDIAC: S1, S2. Regular rate and rhythm. He does have a 3/6 systolic murmur audible at the left upper sternal border without radiation to the carotids. ABDOMEN: Soft, nontender, nondistended. There is no pulsatile mass or abdominal bruit. He has no evidence of cyanosis, clubbing, or edema. DATA: Lab work demonstrates sodium of 142, potassium 3.7, chloride 108, bicarb 21, BUN 12, creatinine 0.8, glucose 93, magnesium 1.7. Bilirubin 2.1, AST 46, ALT 56, alkaline phosphatase 93. N terminal proBNP 3570. Troponin negative x3 at 0.018 x2 and most recently 0.020. Albumin 3.6. Lipase normal at 115. White blood cell count 4.43, hemoglobin 13.3, hematocrit 37.7, platelet count 31. Echocardiogram demonstrates moderate concentric LVH, LVOT gradient of approximately 80 mmHg, aortic valve stenosis with peak gradient of 41 and mean gradient of 21 with peak aortic valve velocity 3.2 m/sec. There was no evidence of mitral stenosis. There was evidence of systolic anterior motion. Chest x-ray: Demonstrates no acute findings. No evidence of congestive heart failure. No effusions and no pneumothorax. IMPRESSION: 1. Atypical chest pain. 2. History of nonobstructive coronary artery disease. 3. Hypertrophic cardiomyopathy. 4. Moderate aortic stenosis. 5. History of high-degree atrioventricular block, status post pacemaker implantation. 6. Hypomagnesemia. The patient presents with a 10-day history of atypical left-sided chest discomfort with troponins that are unremarkable x3. Echocardiogram demonstrates similar findings to previous echoes in our office. He has no history of syncope or near syncope. He is having frequent PVCs. Would recommend increasing his Bystolic from 20 mg daily to 20 mg p.o. b.i.d. and discontinuing his amlodipine/ benazepril. In the setting of atypical chest discomfort, normal troponins, and marked thrombocytopenia with a platelet count of 31, would not recommend diagnostic left heart catheterization. I will contact his manual training teacher, Dr. Balderas, to discuss his platelet count further. Pacer interrogation demonstrated no evidence of sustained ventricular tachycardia, and left ventricular function is normal. PLAN: 1. Discontinue amlodipine/benazepril. 2. Increase Bystolic to 20 mg p.o. b.i.d. 3. Continue current dose of atorvastatin. 4. Add magnesium oxide 400 mg once daily. 5. Patient will be seen in our office next with LATRICE Rhodes, at the [facility] office. 6. Pre-appointment labs on Saturday, including basic metabolic panel, BNP, and serum magnesium. I have reviewed these instructions will the patient and his in detail, as well as with Dr. Ratliff of the hospitalist service. 45 minutes spent coordinating care /[id number]/MODL MTDD
== END 2016-09-19 17:25 | disposition home or self-care (01) ==
LOC: INTOOBSV 12:12 → F2W 13:14
PROVIDERS: ADMIT Student in an Organized Health Care Education/Training Program; ATTEND Student in an Organized Health Care Education/Training Program
DX: R07.89 Other chest pain (principal); Q24.4 Congenital subaortic stenosis; I25.10 Atherosclerotic heart disease of native coronary artery without angina pectoris; Z95.0 Presence of cardiac pacemaker; I73.9 Peripheral vascular disease, unspecified; D69.6 Thrombocytopenia, unspecified; R16.2 Hepatomegaly with splenomegaly, not elsewhere classified; E78.5 Hyperlipidemia, unspecified; Z90.79 Acquired absence of other genital organ(s); Z96.651 Presence of right artificial knee joint; I10 Essential (primary) hypertension
CPT/HCPCS: 71010; 71275; 93005; 93306; 96360; 99285; G0378; J3475; Q9967

== ENCOUNTER → 2017-04-24 | Outpatient (CLI) | payer OTHER ==
[~2017-04-24] MED LIST: IOPAMIDOL (ISOVUE 370) 100 ML BTL IV ONE
== END ==
LOC: FIMAGING 09:26
PROVIDERS: ATTEND Internal Medicine Cardiovascular Disease
DX: I71.2 Thoracic aortic aneurysm, without rupture (principal); I25.10 Atherosclerotic heart disease of native coronary artery without angina pectoris; R91.1 Solitary pulmonary nodule
CPT/HCPCS: 71275; Q9967

== ENCOUNTER 2017-06-22 18:14 | Observation (INO) | payer OTHER ==
--- NOTE | 2017-06-22 18:26 | CPEKG ---
Heart Rate: 95 RR Interval: 632 P-R Interval: 176 QRSD Interval: 134 QT Interval: 412 QTC Interval: 518 P [place]: 69 QRS [place]: -9 T Wave [place]: 17 EKG Severity - ABNORMAL ECG - EKG Impression: SINUS RHYTHM EKG Impression: RIGHT BUNDLE BRANCH BLOCK Electronically Signed By: Adithya Johnson 22-Jun-2017 22:19:22
[2017-06-22] MEDS ORDERED: ASPIRIN 81 MG CHEWABLE TAB PO ONE (18:30)
--- NOTE | 2017-06-22 18:34 | EDPHY ---
H & P Time Seen by Provider: 06/22/17 18:18 HPI/ROS: CHIEF COMPLAINT: Chest pain HISTORY OF PRESENT ILLNESS: The patient is an 82-year-old male with a history of high cholesterol and cardiac pacer presents emergency department with chest pain. The patient was walking at 4:00 p.m. Today when he developed substernal chest pain. Was initially severe but has improved. He now describes a diffuse chest"ache and pressure."Patient has mild shortness of breath. No cough. No fevers or chills. Patient has no leg pain. No recent travel. No nausea or vomiting. REVIEW OF SYSTEMS: My complete review of systems is negative except as mentioned in the HPI. Past Medical/Surgical History: Includes prostate cancer, glaucoma, high cholesterol Past surgical history: Prostatectomy, back surgery, rotator cuff repair, knee replacement, pacer placement Social history: The patient is . He does not smoke. Smoking Status: Never smoked Physical Exam: Vitals noted. GENERAL: Well-appearing, in no acute distress, alert. HEENT: Eyes normal to inspection, normal pharynx, no signs of dehydration. NECK: No thyromegaly, no lymphadenopathy, supple. RESPIRATORY: Clear to auscultation bilaterally, no rales, rhonchi or wheezing. CVS: Regular rate and rhythm, no rubs, murmurs, or gallops. ABDOMEN: Soft, nontender, nondistended, no organomegaly. BACK: Normal to inspection, no CVA tenderness. SKIN: Normal color, no rash, warm, dry. No pallor. EXTREMITIES: No pedal edema, no calf tenderness, no Homans sign or cords, no joint swelling. NEURO/PSYCH: Alert and oriented, normal mood and affect, normal motor sensory exam. Constitutional: Initial Vital Signs Heart Rate 98 06/22/17 18:15 Respiratory Rate 20 06/22/17 18:15 Blood Pressure 121/110 H 06/22/17 18:15 O2 Sat (%) 98 06/22/17 18:15 O2 Delivery Mode Room Air Allergies/Adverse Reactions: oxycodone [Oxycodone] Allergy (Severe, Verified 06/22/17 18:15) MAKES ME CRAZY Home Medications: Medication Instructions Recorded Atorvastatin Calcium [Lipitor 10 10 mg PO HS #0 //14 mg (*)] Bimatoprost 0.01% [Lumigan 0.01% 1 drops EACHEYE HS #0 01/17/14 (*)] Dorzolamide 2% [Trusopt 2% (*)] 1 drops EACHEYE TID 08/23/16 Acetaminophen [Tylenol 325mg (*)] 650 mg PO Q4HRS PRN #0 tab 08/24/16 Bisoprolol Fumarate 10 mg PO BID #60 09/19/16 Medical Decision Making - Diagnostics Imaging Results: Imaging Impressions Chest/Thorax CTA 06/22/17 18:56 Impression: 1. No evidence of pulmonary embolus using CT protocol. 2. Previously described pulmonary nodules have a benign appearance. No additional imaging follow-up is felt to be necessary. 3. Stable moderate dilatation of the ascending aorta. 4. Moderate atherosclerotic calcifications are noted involving the thoracic aorta, coronary arteries, aortic, and mitral valves. 5. Moderate stenosis of the proximal SMA measuring 60-70%. 6. Splenomegaly suspected. Findings discussed with Talia Friedman M.D. at 20:11 hour, 06/22/2017. ED Course/Re-evaluation: In the emergency department I discussed possible etiologies with the patient. I answered all his questions. IV was placed. Laboratory studies, chest x-ray and EKG were ordered. Patient was given aspirin 324 mg orally. EKG shows normal sinus rhythm, normal rate, right bundle branch block, normal intervals. There are no ST or T-wave abnormalities. The patient's CBC and chemistry were unremarkable. Creatinine was normal. Patient had elevated D-dimer 0.53. Troponin is pending. On recheck the patient had elevated troponin 0.073. Patient also has an elevated BNP at 900s. I discussed the case with Dr. Simons. She will admit the patient. 2015: CT angio: Please refer the dictated report. No pulmonary embolus. I discussed the results with the patient. I answered all their questions. Differential Diagnosis: My differential includes but is not limited to ACS, acute AK, dissection, aneurysm, pulmonary embolus, GERD, reflux, myocarditis, pericarditis - Data Points Laboratory Results: Laboratory Results 06/22/17 18:30 06/22/17 18:30 06/22/17 06/22/17 06/22/17 18:30 18:30 18:30 WBC 10.56 10^3/uL H 10^3/uL (3.80-9.50) RBC 4.23 10^6/uL L 10^6/uL (4.40-6.38) Hgb 15.4 g/dL g/dL (13.7-17.5) Hct 43.1 % % (40.0-51.0) MCV 101.9 fL H fL (81.5-99.8) MCH 36.4 pg H pg (27.9-34.1) MCHC 35.7 g/dL g/dL (32.4-36.7) RDW 14.4 % % (11.5-15.2) Plt Count 46 10^3/uL L 10^3/uL (150-400) MPV 11.1 fL fL (8.7-11.7) Neut % (Auto) 73.1 % % (39.3-74.2) Lymph % (Auto) 17.3 % % (15.0-45.0) [place] % (Auto) 8.8 % % (4.5-13.0) Eos % (Auto) 0.0 % L % (0.6-7.6) Baso % (Auto) 0.1 % L % (0.3-1.7) Nucleat RBC Rel Count 0.0 % % (0.0-0.2) Absolute Neuts (auto) 7.72 10^3/uL H 10^3/uL (1.70-6.50) Absolute Lymphs (auto) 1.83 10^3/uL 10^3/uL (1.00-3.00) Absolute Monos (auto) 0.93 10^3/uL H 10^3/uL (0.30-0.80) Absolute Eos (auto) 0.00 10^3/uL L 10^3/uL (0.03-0.40) Absolute Basos (auto) 0.01 10^3/uL L 10^3/uL (0.02-0.10) Absolute Nucleated RBC 0.00 10^3/uL 10^3/uL (0-0.01) Immature Gran % 0.7 % % (0.0-1.1) Immature Gran # 0.07 10^3/uL 10^3/uL (0.00-0.10) Platelet Estimate DECREASED L (ADEQ) D-Dimer 0.53 ug/mLFEU H ug/mLFEU (0.00-0.50) Sodium 141 mEq/L mEq/L (135-145) Potassium 4.3 mEq/L mEq/L (3.5-5.2) Chloride 104 mEq/L mEq/L (97-110) Carbon Dioxide 20 mEq/l L mEq/l (22-31) Anion Gap 17 mEq/L H mEq/L (8-16) BUN 17 mg/dL mg/dL (7-23) Creatinine 0.8 mg/dL mg/dL (0.7-1.3) Estimated GFR > 60 Glucose 99 mg/dL mg/dL (70-100) Calcium 9.4 mg/dL mg/dL (8.5-10.4) Total Bilirubin 1.3 mg/dL mg/dL (0.1-1.4) Conjugated Bilirubin 0.6 mg/dL H mg/dL (0.0-0.5) Unconjugated Bilirubin 0.7 mg/dL mg/dL (0.0-1.1) AST 58 IU/L IU/L (17-59) ALT 58 IU/L IU/L (21-72) Alkaline Phosphatase 94 IU/L IU/L (38-126) Troponin I 0.073 ng/mL H ng/mL (0.000-0.034) NT-Pro-B Natriuret Pep 954 pg/mL H pg/mL (0-450) Total Protein 8.2 g/dL g/dL (6.3-8.2) Albumin 4.3 g/dL g/dL (3.5-5.0) Lipase 150 IU/L IU/L (23-300) Medications Given: Discontinued Medications Aspirin (Aspirin) 324 mg PO EDNOW ONE Stop: 06/22/17 18:31 Last Admin: 06/22/17 18:46 Dose: 324 mg Departure - Departure Disposition: [facility] Inpatient Acute Clinical Impression: Chest pain Qualifiers: Chest pain type: unspecified Qualified Code(s): R07.9 - Chest pain, unspecified Condition: Good
[2017-06-22 18:44] LABS: PLATELET COUNT 46 10^3/uL (150-400)
[2017-06-22] MEDS ORDERED: ONDANSETRON 4 MG/2 ML VIAL IVP PRN (21:11)
[2017-06-22] MEDS ORDERED: ONDANSETRON DISINTEGRATING 4 MG TAB PO PRN (21:11)
[2017-06-22] MEDS ORDERED: METOPROLOL TARTRATE 5 MG/5 ML INJ IVP ONE (21:36)
[2017-06-22] MEDS ORDERED: ZOLPIDEM TARTRATE 5 MG TAB PO PRN (22:11)
[2017-06-22] MEDS ORDERED: HYOSCYAMINE SULFATE 0.125 MG TAB PO PRN (22:15)
[2017-06-22] MEDS ORDERED: ATORVASTATIN CALCIUM 20 MG TAB PO SCH (22:15)
[2017-06-22] MEDS ORDERED: MAG HYDROX/AL HYDROX/SIMETH 30 ML UDCUP PO PRN (22:15)
[2017-06-22] MEDS ORDERED: LIDOCAINE 2% VISCOUS 15 ML UDCUP PO PRN (22:15)
[2017-06-22] MEDS ORDERED: hydrALAZINE 25 MG TAB PO PRN (22:19)
[2017-06-22] MEDS ORDERED: BISOPROLOL FUMARATE 5 MG TAB PO SCH (22:30)
--- NOTE | 2017-06-22 22:35 | PDGENHP ---
History and Physical - Chief Complaint chest pain - History of Present Illness 82 yo male with h/o CAD, hypertension and hyperlipidemia presents to ED with chest pain. Symptoms started today while he was walking. He points to his low sternum / epigastric region. He describes is as a sharp, burning pain. He endorses associated dizziness, blurred vision and mild SOB. No radiation of the pain. No nausea or diaphoresis. In the ED, he received a full dose aspirin. He is currently chest pain free. He notes he had an outpatient procedure on his right knee yesterday for which he was sedated. He then ate c[place] food for dinner. He also drinks at least 1/2 bottle of wine per night. He is followed by Dr. Balderas for thrombocytopenia, thought secondary to splenomegaly and portal hypertension. In the ED, his troponin is elevated to 0.07. His EKG is non-ischemic with a chronic RBBB. He is admitted to the hospital for further management. History Information - Allergies/Home Medication List Allergies/Adverse Reactions: oxycodone [Oxycodone] Allergy (Severe, Verified 06/22/17 18:15) MAKES ME CRAZY Home Medications: Atorvastatin Calcium [Lipitor 10 mg (*)] 20 mg PO HS #0 01/17/14 [Last Taken ] Bimatoprost 0.01% [Lumigan 0.01% (*)] 1 drops EACHEYE HS #0 01/17/14 [Last Taken 06/22/17] Dorzolamide 2% [Trusopt 2% (*)] 1 drops EACHEYE DAILY 08/23/16 [Last Taken 06/22] Bisoprolol Fumarate 20 mg PO HS 06/22/17 [Last Taken 06/21/17] Magnesium Oxide [Magnesium Oxide 400 mg (*)] 400 mg PO BID 06/22/17 [Last Taken 06/22/17] Zolpidem Tartrate [Ambien 5MG (*)] 5 mg PO HS PRN 06/22/17 [Last Taken Unknown] I have personally reviewed and updated: family history, medical history, social history, surgical history - Past Medical History coronary artery disease, hypertension, hyperlipidemia, liver disease Additional medical history: CAD - angiogram 2013 showed completely occluded diaganol with good collaterals. aortic stenosis. hypertrophic cardiomyopathy. splenomegaly. thrombocytopenia. 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 Alcohol dependence. Prostate cancer s/p prostatectomy - Surgical History Additional surgical history: multiple orthopedic surgeries. pacemaker - Family History Positive for: CAD - Social History Smoking Status: Never smoked Alcohol Use: Heavy (Drinks at least 1/2 bottle of wine per night) Drug Use: None Additional social history: [employer] Review of Systems Review of Systems: ROS: 10pt was reviewed & negative except for what was stated in HPI & below Physical Exam Physical Exam: Temp Pulse Resp BP Pulse Ox 83 18 183/109 H 96 06/22/17 22:02 06/22/17 21:28 06/22/17 22:02 06/22/17 21:28 Constitutional: no apparent distress Eyes: PERRL Ears, Nose, Mouth, Throat: moist mucous membranes Cardiovascular: regular rate and rhythym, systolic murmur Respiratory: no respiratory distress, clear to auscultation Gastrointestinal: normoactive bowel sounds, soft, non-tender abdomen Skin: warm Musculoskeletal: full muscle strength Neurologic: AAOx3 Psychiatric: interacting appropriately Lab Data & Imaging Review 06/22/17 18:30 06/22/17 18:30 WBC 10.56 10^3/uL (3.80-9.50) H 06/22/17 18:30 RBC 4.23 10^6/uL (4.40-6.38) L 06/22/17 18:30 Hgb 15.4 g/dL (13.7-17.5) 06/22/17 18:30 Hct 43.1 % (40.0-51.0) 06/22/17 18:30 MCV 101.9 fL (81.5-99.8) H 06/22/17 18:30 MCH 36.4 pg (27.9-34.1) H 06/22/17 18:30 MCHC 35.7 g/dL (32.4-36.7) 06/22/17 18:30 RDW 14.4 % (11.5-15.2) 06/22/17 18:30 Plt Count 46 10^3/uL (150-400) L 06/22/17 18:30 MPV 11.1 fL (8.7-11.7) 06/22/17 18:30 Neut % (Auto) 73.1 % (39.3-74.2) 06/22/17 18:30 Lymph % (Auto) 17.3 % (15.0-45.0) 06/22/17 18:30 [place] % (Auto) 8.8 % (4.5-13.0) 06/22/17 18:30 Eos % (Auto) 0.0 % (0.6-7.6) L 06/22/17 18:30 Baso % (Auto) 0.1 % (0.3-1.7) L 06/22/17 18:30 Nucleat RBC Rel Count 0.0 % (0.0-0.2) 06/22/17 18:30 Absolute Neuts (auto) 7.72 10^3/uL (1.70-6.50) H 06/22/17 18:30 Absolute Lymphs (auto) 1.83 10^3/uL (1.00-3.00) 06/22/17 18:30 Absolute Monos (auto) 0.93 10^3/uL (0.30-0.80) H 06/22/17 18:30 Absolute Eos (auto) 0.00 10^3/uL (0.03-0.40) L 06/22/17 18:30 Absolute Basos (auto) 0.01 10^3/uL (0.02-0.10) L 06/22/17 18:30 Absolute Nucleated RBC 0.00 10^3/uL (0-0.01) 06/22/17 18:30 Immature Gran % 0.7 % (0.0-1.1) 06/22/17 18: Immature Gran # 0.07 10^3/uL (0.00-0.10) 06/22/17 18:30 Platelet Estimate DECREASED (ADEQ) L 06/22/17 18:30 D-Dimer 0.53 ug/mLFEU (0.00-0.50) H 06/22/17 18:30 Sodium 141 mEq/L (135-145) 06/22/17 18:30 Potassium 4.3 mEq/L (3.5-5.2) 06/22/17 18:30 Chloride 104 mEq/L (97-110) 06/22/17 18:30 Carbon Dioxide 20 mEq/l (22-31) L 06/22/17 18:30 Anion Gap 17 mEq/L (8-16) H 06/22/17 18:30 BUN 17 mg/dL (7-23) 06/22/17 18:30 Creatinine 0.8 mg/dL (0.7-1.3) 06/22/17 18:30 Estimated GFR > 60 06/22/17 18:30 Glucose 99 mg/dL (70-100) 06/22/17 18:30 Calcium 9.4 mg/dL (8.5-10.4) 06/22/17 18:30 Total Bilirubin 1.3 mg/dL (0.1-1.4) 06/22/17 18:30 Conjugated Bilirubin 0.6 mg/dL (0.0-0.5) H 06/22/17 18:30 Unconjugated Bilirubin 0.7 mg/dL (0.0-1.1) 06/22/17 18:30 AST 58 IU/L (17-59) 06/22/17 18:30 ALT 58 IU/L (21-72) 06/22/17 18:30 Alkaline Phosphatase 94 IU/L (38-126) 06/22/17 18:30 Troponin I 0.073 ng/mL (0.000-0.034) H 06/22/17 18:30 NT-Pro-B Natriuret Pep 954 pg/mL (0-450) H 06/22/17 18:30 Total Protein 8.2 g/dL (6.3-8.2) 06/22/17 18:30 Albumin 4.3 g/dL (3.5-5.0) 06/22/17 18:30 Lipase 150 IU/L (23-300) 06/22/17 18:30 Visualized and Interpreted Chest x-ray results: Yes Chest X-Ray results: no infiltrate Visualized and Interpreted EKG results: Yes EKG Interpretation: Positive for: right bundle branch block Assessment & Plan Assessment: Chest pain (Acute) - mild trop elevation, though currently chest pain free. EKG non-ischemic. Note h/o CAD with completely occluded diagonal and good collaterals on 2014 angiogram. No intervention taken at that time due to risks associated with anti-platelet therapy in setting of thrombocytopenia. -admit to telemetry -trend trop -received full dose ASA in ED -cont statin, BB, prn nitro -lipid panel in am -lexiscan in am unless trop on the rise, then may warrant angiogram -discussed with cards, they will consult in am Hypertension - poor control, though hasn't had his evening Bystolic -IV metoprolol now -resume home bystolic dose once med rec completed -prn hydralazine for SBP >160 -may warrant additional agent such as Norvasc Thrombocytopenia - thought to be consumptive in setting of hepatosplenomegaly, chronic, at baseline. Also consider BM suppression 2/2 etoh. This increases his bleeding risk should he have a cardiac intervention that warrants anti- platelet therapy. See Dr. Balderas's oncology consult note in [facility] regarding this issue. -follow platelets Alcohol dependence - pre-contemplative regarding cessation. No h/o withdrawal -hs wine to prevent w/d Hepatosplenomegaly - query secondary to alcoholic liver disease and portal hypertension. LFT's normal at this time thus will defer imaging. Moderate - consider repeat echo, defer to cards Hypertrophic cardiomyopathy Hyperlipidemia - cont statin Full code DVT PPLX - defer pharm with plts <100, SCD's Dispo - obs
[2017-06-22] MEDS ORDERED: NITROGLYCERIN 0.4 MG BTL SL PRN (22:46)
[2017-06-22] MEDS: WHITE WINE 120 ML BOTTLE PO SCH (22:58)
[2017-06-22] MEDS: PANTOPRAZOLE SODIUM 40 MG TAB PO SCH (23:02)
[2017-06-23] MEDS: ACETAMINOPHEN 325 MG TAB PO PRN ×2 (03:54→10:17)
[2017-06-23 04:56] LABS: PLATELET COUNT 35 10^3/uL (150-400)
[2017-06-23] MEDS ORDERED: IOPAMIDOL (ISOVUE 370) 100 ML BTL IV ONE (07:12)
[2017-06-23] MEDS ORDERED: MAGNESIUM OXIDE 400 MG TAB PO SCH (09:00)
[2017-06-23] MEDS ORDERED: DORZOLAMIDE 2% OPTH DROPS EACHEYE SCH (09:00)
[2017-06-23] MEDS ORDERED: ASPIRIN EC 325 MG TAB PO ONE (10:11)
[2017-06-23] MEDS ORDERED: DIAZEPAM 5 MG TAB PO ONE (10:11)
[2017-06-23] MEDS ORDERED: FAMOTIDINE 20 MG TAB PO ONE (10:11)
[2017-06-23] MEDS ORDERED: diphenhydrAMINE 25 MG CAP PO ONE (10:11)
[2017-06-23] MEDS ORDERED: NS 1,000 ML IV SCH (10:15)
--- NOTE | 2017-06-23 10:21 | PDPROPOC ---
Sedation Plan of Care Sedation Plan of Care: vital signs stable, mental status noted, patient educated of risks, benefits, alternatives, patient can tolerate sedation ASA Classification: ASA 3 Planned drugs: fentanyl, midazolam Mallampati Score: Class 2 Mallampati Reference Image: Patient passed 3-3-2 rule?: Yes
--- NOTE | 2017-06-23 10:21 | PDHPUP ---
History & Physical Update H&P update statement: This history and physical update is based on an assessment of the patient which was completed after admission or registration (within 24 hours), but prior to the surgery/procedure. H&P update: H&P reviewed & patient examined (elevated and increasing troponin with recent ischemia on nuc at [facility]...), no change in patient's condition since H&P completed
[2017-06-23] MEDS ORDERED: LIDOCAINE 1% 300 MG/30 ML SDV ONE (10:49)
[2017-06-23] MEDS ORDERED: IOPAMIDOL (ISOVUE-370) 150 ML BTL IV ONE (10:49)
[2017-06-23] MEDS ORDERED: VERAPAMIL 5 MG/2 ML VIAL ONE (10:49)
[2017-06-23] MEDS ORDERED: HEPARIN 10,000 UNIT/10 ML MDV (1,000 UNIT/ML) ONE (10:49)
[2017-06-23] MEDS ORDERED: MIDAZOLAM 2 MG/2 ML VIAL ONE (10:49)
[2017-06-23] MEDS ORDERED: fentaNYL 100 MCG/2 ML INJ ONE (10:49)
[2017-06-23 11:05] LABS: INR 1.5 (0.83-1.16); PROTIME(PATIENT) 18.3 SEC (12.0-15.0)
[2017-06-23] MEDS ORDERED: ATROPINE SULFATE 1 MG/10 ML SYR IVP PRN (12:06)
--- NOTE | 2017-06-23 13:21 | ASMTLACE ---
MIGUELE Acuity / Level of Answers: No Care: Did the patient have an inpatient admission? Comorbidities - select Answers: Coronary Artery Disease all that apply Mild liver or renal disease Other Notes: CP # of Emergency department Answers: 1-2 visits in the last 6 months Social determinants Answers: History of substance abuse (ETOH, street drugs, prescription drugs, etc.) Score: 9 Date Signed: 06/23/2017 01:20 PM Electronically Signed By:Delia Etienne LCSW
--- NOTE | 2017-06-23 13:25 | ASMTCMCOM ---
CM Note CM Note Notes: 82yr old male admitted for CP. He has a Hx of CAD, HTN, HLD, Pacer, ETOH dependence, Prostate CA. Patient to have a cath procedure today. Patient lives with his . Needs unknown at this time. Date Signed: 06/23/2017 01:25 PM Electronically Signed By:Delia Etienne LCSW
--- NOTE | 2017-06-23 14:05 | PDDXCAT ---
Diagnostic Cath Note - . Date: 06/23/17 Clock Assembler: Liz Indication: other (unstable angina with resting CCS Class IV angina and positive markers suggestive of subendocardial myocardial infarction ) - Procedure Access: right wrist Procedure: left heart catheterization, coronary angiography, left ventriculogram - Materials Left Heart Cath size: 6F Left Heart Cath materials: standard multipack (JL4, JR4, pigtail) - Findings-Left Heart Catheterization LM: 6mm in size with significant calcific atheroma in the wall no obstruction. bifurcates into an LAD ans circumflex system. LAD: 2.5 mm in size with significan atheroma and calcification in the proximal section. No flow limiting obstruction. The principal diagonal is occluded at its takeoff from the LAD but is well collateralized from a conction with the distal LAD. The collateral may be even more robust than in 2014. LCX: 3.5 in size with nice sized obtuse marginal vessel. No obstructive disease. PORFIRIO III and normal flow throughout. RCA: Dominant and 3.0 vessel with calcific atheroma in the proximal segment. NO flow limiting obstruction is identified. PORFIRIO III flow through out. EDP: 28mmHg. LVEF: 65-70 percent and hypercontractile. Wall motion: normal and hypercontractile except in anterolateral wall near course of proximal diagonal there is mild hypokinesis in a very small region. Estimated blood loss: <50ml Closure method: TR Band Assessment: Moderate [place] vessel coronary disease with obstruction only in the diagonal branch which is well collateralized and may be more robust than at time of last cath in 2013. Hypercontractile left ventricle with EF of 65-70 percent basal anterolateral hypokinesis in region of proximal diagonal. Elevated LVEDP. Gradient across outflo tract and aortic valve performed with slop pull back and JR4 catheter reveals peak to peak gradient of 24mmHg. Gradients on echo from last August seem to be overestimated. Plan: The patient appears to be a candidate for early discharge as well as medical management at present. The carotid ultrasound for left carotid bruit versus transmitted murmur is still pending. Patient Problems: Problems Problem Status Onset Chest pain Acute Abnormal adenosine sestamibi study Acute Chest pain Acute Coronary artery disease Acute Heart block AV third degree Acute Pacemaker Acute
[2017-06-23] MEDS: PANTOPRAZOLE SODIUM 40 MG TAB PO SCH (14:36)
[2017-06-23] MEDS: WHITE WINE 120 ML BOTTLE PO SCH (14:36)
[2017-06-23 16:23] VITALS: BP 122/66
--- NOTE | 2017-06-23 18:54 | GDS ---
[f rep st] DISCHARGE SUMMARY FINAL DIAGNOSES: 1. Chest pain. 2. History of coronary artery disease. 3. Hypertension. 4. Thrombocytopenia. 5. Hepatosplenomegaly. 6. Alcohol dependence. 7. Moderate aortic stenosis. 8. Hypertrophic cardiomyopathy. 9. Hyperlipidemia. HOSPITAL COURSE: The patient was admitted with chest pain concerning for angina. He had a troponin elevation to 0.53. He underwent a cardiac catheterization, which showed moderate [place] vessel disea se with obstruction only in diagonal branch, which was well collateralized. No interventions were ta emory. Recommend discharge with medical management. He will follow up with Dr. Gabriel in 1 to 2 weeks. I have given him this information. He additionally had a carotid Doppler ultrasound, given a bruit that was appreciated. This was negative for any flow-limiting stenosis. He is discharged in stable condition with no changes to his medications. /[id number]/MODL
[2017-06-23] MEDS ORDERED: BIMATOPROST 0.01% 2.5 ML OPHT.BTL EACHEYE SCH (21:00)
== END 2017-06-23 18:10 | disposition home or self-care (01) ==
LOC: F2W 21:42
PROVIDERS: ADMIT Hospitalist; ATTEND Hospitalist
PROC: B2151ZZ Fluoroscopy of Left Heart using Low Osmolar Contrast (ICD-10-PCS; principal; 2017-06-22)
PROC: B2111ZZ Fluoroscopy of Multiple Coronary Arteries using Low Osmolar Contrast (ICD-10-PCS; principal; 2017-06-22)
PROC: 4A023N7 Measurement of Cardiac Sampling and Pressure, Left Heart, Percutaneous Approach (ICD-10-PCS; principal; 2017-06-22)
DX: R07.9 Chest pain, unspecified (principal); I25.10 Atherosclerotic heart disease of native coronary artery without angina pectoris; I10 Essential (primary) hypertension; D69.6 Thrombocytopenia, unspecified; R16.2 Hepatomegaly with splenomegaly, not elsewhere classified; F10.20 Alcohol dependence, uncomplicated; I35.0 Nonrheumatic aortic (valve) stenosis; I42.2 Other hypertrophic cardiomyopathy; E78.5 Hyperlipidemia, unspecified
CPT/HCPCS: 71275; 93005; 93458; 93880; G0378; J1200; J1644; J2250; J3010; Q9967; C1769